=== PATIENT | male | born 1985 | race Two or more races ===

== ENCOUNTER 2024-02-04 14:23 | Emergency (ER) | payer OTHER ==
[~2024-02-04] VITALS: Ht 172.7 cm; Wt 117.3 kg
[2024-02-04 14:33] VITALS: BP 149/85; PULSE 93; RESP 18; O2SAT 97
[2024-02-04] MEDS ORDERED: ONDANSETRON HCL 4 MG/2 ML VIAL ONE (14:44)
[2024-02-04] MEDS ORDERED: SODIUM CHLORIDE 0.9% 1,000 ML IV ONE (14:45)
[2024-02-04] MEDS: ONDANSETRON HCL 4 MG/2 ML VIAL IV ONE (14:52)
[2024-02-04] MEDS: KETOROLAC TROMETH 30 MG/ML 1ML VIAL IV ONE (14:52)
== END 2024-02-04 15:41 | disposition left against medical advice (07) ==
LOC: ER 14:23
DX: R10.31 Right lower quadrant pain (principal)
CPT/HCPCS: 96374; 96375; 99284; J1885; J2405